=== PATIENT | male | born 1950 | race Two or more races ===

== ENCOUNTER 2022-02-04 09:05 | Outpatient (REF) | payer MEDICARE, MEDICAID, SELFPAY ==
[2022-02-04 10:28] LABS: Erythrocyte Sedimentation Rate 4 MM/HR (0-15)
[2022-02-04 11:05] LABS: Folate 13.9 ng/mL (> or = 4.0); Vitamin B12 394 pg/mL (200-900)
[2022-02-05 05:55] LABS: Syphilis Screen Nonreactive (Nonreactive)
[2022-02-06 02:42] LABS: Lyme Abs Screen <0.90 index
== END 2022-02-04 09:06 | disposition home or self-care (01) ==
LOC: HO.LAB 09:05
PROVIDERS: Visit Provider Psychiatry & Neurology Neurology
DX: G20 Parkinson's disease (principal)
CPT/HCPCS: 36415; 82607; 82746; 85652; 86617; 86618; 86780